=== PATIENT | male | born 1980 | race American Indian/Alaskan Native ===

== ENCOUNTER 2017-10-05 20:40 | Emergency (ER) | payer SELFPAY ==
[2017-10-05] MEDS ORDERED: DUONEB *Not for PRN Use IH ONE ×2 (21:05→21:07)
[2017-10-05] MEDS ORDERED: DELTASONE PO ONE (22:43)
--- NOTE | 2017-10-05 23:02 | Emergency Department Report ---
HPI - General Chief Complaint: Adult Asthma Time Seen by Provider: 10/05/17 22:23 - HPI HPI: Patient is a 37-year-old male with a history of asthma and bronchitis who presents to ED today stating he was outside cutting and today when he cut a week. This started coughing. Patient states coughing got worse and started to get chest tightness so he was scheduled his asthma was flaring up. Patient states he ran out of his albuterol inhaler and nebulizer wasn't able to get a good treatment. He denies fevers/chills or shortness of breath/chest pain/ trauma, dizziness or lightheadedness or any other problems. ED Past Medical Hx - Past Medical History Previous Medical History?: Yes Hx Asthma: Yes Additional medical history: anxiety - Surgical History Past Surgical History?: No - Social History Smoking Status: Never Smoker Substance Use Type: None - Medications Home Medications: Home Medications Medication Instructions Recorded Confirmed Last Taken Type ALBUTEROL Inhaler [ProAir HFA 2 puff IH QID PRN #1 inhalation 10/05/17 Unknown Rx Inhaler] ALBUTEROL NEB's [Proventil 0.083% 2.5 mg IH DAILY PRN #1 pack 10/05/17 Unknown Rx NEBS] Benzonatate [Tessalon Perles] 100 mg PO Q8HR #20 capsule 10/05/17 Unknown Rx Loratadine [Claritin] 10 mg PO DAILY #30 tablet 10/05/17 Unknown Rx ED Review of Systems ROS: Stated complaint: KEYSHAWN, CHEST PAIN Other details as noted in HPI Constitutional: denies: chills, fever Eyes: denies: eye pain, eye discharge, vision change ENT: denies: ear pain, throat pain Respiratory: cough. denies: shortness of breath, wheezing Cardiovascular: denies: chest pain, palpitations Endocrine: no symptoms reported Gastrointestinal: denies: abdominal pain, nausea, diarrhea Genitourinary: denies: urgency, dysuria Musculoskeletal: denies: back pain, joint swelling, arthralgia Skin: denies: rash, lesions Neurological: denies: headache, weakness, paresthesias Psychiatric: denies: anxiety, depression Hematological/Lymphatic: denies: easy bleeding, easy bruising Physical Exam - Physical Exam Physical Exam: GENERAL: Alert and oriented x3, no apparent distress, Normal Gait, atraumatic. HEAD: Head is normocephalic and a-traumatic. NOSE: Nose symetrical, Nontender,Nares appeared normal. MOUTH:Mouth is well hydrated and without lesions. Tonsils nonerythematous or swollen, Uvula midline, Tongue not elevated. Mucous membranes are moist. Posterior pharynx clear, no exudate or lesions. Patent airways. NECK: Supple. Non edematous, No lymphadenopathy or thyromegaly. No C-spine tenderness LUNGS: Symetrical with respiration, No wheezing, no rales or crackles, CTAB. No use of accessory muscles HEART: S1, S2 present, regular rate and rhythm without murmur, no rubs, no gallops. Non tender to palpation BACK: Full range of motion, no spinal tenderness, nontender to palpation. SKIN: Warm and dry, No lesions, No ulceration or induration present. ED Medical Decision Making - Medical Decision Making 37 -year-old male presents with asthma exacerbation ED course: Patient received breathing treatment and prednisone in the ED Post evaluation patient showed no sign of respiratory distress, no wheezing, no use of assessory muscles Resting comfortably needed. I discussed the patient will follow up with primary care physician Vital signs are normal patient is satting 99% oxygen on room air Critical care attestation.: If time is entered above; I have spent that time in minutes in the direct care of this critically ill patient, excluding procedure time. ED Disposition Clinical Impression: Bronchitis Asthma Qualifiers: Asthma severity: mild Asthma persistence: intermittent Asthma complication type : uncomplicated Qualified Code(s): J45.20 - Mild intermittent asthma, uncomplicated Disposition: DC- TO HOME OR SELFCARE Is pt being admited?: No Does the pt Need Aspirin: No Condition: Stable Instructions: Asthma (ED), Chronic Bronchitis (ED) Additional Instructions: Make sure to follow up with the primary care physician as discussed. Take all your medications as you've been prescribed. If you have any worsening symptoms or develop new symptoms please return to ED immediately. Prescriptions: ALBUTEROL Inhaler [ProAir HFA Inhaler] 2 puff IH QID PRN #1 inhalation PRN Reason: Shortness Of Breath ALBUTEROL NEB's [Proventil 0.083% NEBS] 2.5 mg IH DAILY PRN #1 pack PRN Reason: Wheezing Benzonatate [Tessalon Perles] 100 mg PO Q8HR #20 capsule Loratadine [Claritin] 10 mg PO DAILY #30 tablet Referrals: PRAMOD RIVER MD [Primary Care Provider] - 3-[address] [facility] [Outside] - 3-5 Days [facility] [Outside] - 3-5 Days Forms: Accompanied Note, Work/School Release Form(ED) Time of Disposition: 22:59
[2017-10-05 23:14] VITALS: BP 133/87
== END 2017-10-05 23:17 | disposition home or self-care (01) ==
LOC: ED 20:40
DX: J45.20 Mild intermittent asthma, uncomplicated (principal); F41.9 Anxiety disorder, unspecified
CPT/HCPCS: 93005; 93010; 94640; 99283; J7512